=== PATIENT | male | born 2000 | race Caucasian/White ===

== ENCOUNTER 2024-06-22 01:49 | Emergency (ER) | payer BC, MEDICAID, SELFPAY ==
[~2024-06-22] VITALS: Ht 185.4 cm; Wt 61.5 kg
[2024-06-22] MEDS: ONDANSETRON 4MG 2ML VIAL IV ONE (03:06)
[2024-06-22] MEDS: KETOROLAC 30 MG/ML 1ML VIAL IV ONE (03:06)
[2024-06-22] MEDS: NS (Normal Saline) 0.9% 1,000 ML IV ONE (03:06)
[2024-06-22 03:14] LABS: BASO % 0.7 % (0.0-1.0); EOS % 0.7 % (0.0-3.0); HEMATOCRIT 40.1 % (42.0-52.0); HEMOGLOBIN 13.8 g/dl (13.5-17.5); LYMPH # 1.2 10^3/uL (1.5-5.0); LYMPH % 27.8 % (24.0-44.0); MEAN CORPUSCULAR HEMOGLOBIN 30.4 pg (27.0-33.0); MEAN CORPUSCULAR HGB CONC 34.4 g/dl (32.0-36.5); MEAN CORPUSCULAR VOLUME 88.3 fl (80.0-96.0); MONO # 0.3 10^3/uL (0.0-0.8); MONO % 6.7 % (2.0-8.0); NEUTROPHILS # 2.8 10^3/uL (1.5-8.5); NEUTROPHILS % 63.9 % (36.0-66.0); PLATELET COUNT, AUTOMATED 272 10^3/uL (150-450); RED BLOOD COUNT 4.54 10^6/uL (4.30-6.10); WHITE BLOOD COUNT 4.4 10^3/uL (4.0-10.0)
[2024-06-22 03:29] LABS: KETONE, URINE AUTO RFX NEGATIVE (NEGATIVE); LEUKOCYTE ESTERASE UR AUTO RFX NEGATIVE (NEGATIVE); NITRITE, URINE AUTO RFX NEGATIVE (NEGATIVE); RBC, URINE AUTO RFX 0 /HPF (0-3); SQUAM EPITHELIAL CELL UR AURFX 0 /HPF (0-6); WBC, URINE AUTO RFX 0 /HPF (0-3)
[2024-06-22 03:33] LABS: LIPASE 36 U/L (12-53)
[2024-06-22 03:35] LABS: ALBUMIN 4.5 G/DL (3.2-5.2); ALKALINE PHOSPHATASE 51 U/L (40-129); ALT/SGPT 23 U/L (7.0-40); AMYLASE 108 U/L (30-118); AST/SGOT 14 U/L (<34); BILIRUBIN,TOTAL 0.7 MG/DL (0.3-1.2); BLOOD UREA NITROGEN 6 MG/DL (9-23); CALCIUM LEVEL 9.7 MG/DL (8.5-10.1); CARBON DIOXIDE LEVEL 28 MMOL/L (20-31); CHLORIDE LEVEL 106 MMOL/L (98-107); CREATININE FOR GFR 0.75 MG/DL (0.70-1.30); GLOMERULAR FILTRATION RATE > 60.0 (>60); GLUCOSE, FASTING 100 MG/DL (60-100); POTASSIUM SERUM 3.4 MMOL/L (3.5-5.1); SODIUM LEVEL 143 MMOL/L (136-145); TOTAL PROTEIN 6.9 G/DL (5.7-8.2)
[2024-06-22 04:00] LABS: AMPHETAMINES LEVEL URINE NEGATIVE (NEGATIVE); BARBITURATES URINE NEGATIVE (NEGATIVE); BENZODIAZEPINES URINE NEGATIVE (NEGATIVE); COCAINE METABOLITE URINE NEGATIVE (NEGATIVE); METHADONE URINE NEGATIVE (NEGATIVE); OPIATES URINE NEGATIVE (NEGATIVE); PHENCYCLIDINE URINE NEGATIVE (NEGATIVE)
[2024-06-22 04:27] LABS: CANNABINOIDS URINE POSITIVE (NEGATIVE)
[2024-06-22] MEDS: diphenhydrAMINE 50MG/ML VIAL IV STA (05:46)
[2024-06-22] MEDS: methylPREDNISolone 125MG 2ML VIAL IV ONE (05:46)
[2024-06-22] MEDS: FAMOTIDINE 20MG/2ML VIAL IVP ONE (05:46)
[2024-06-22] MEDS ORDERED: ISOVUE-370 76% 100ML VIAL As Ordered ONE (05:47)
[2024-06-22] MEDS: POTASSIUM CHLORIDE 10MEQ SR TABLET PO ONE (09:53)
[2024-06-22 09:55] VITALS: BP 117/58; TEMP 97.3; O2SAT 97
== END 2024-06-22 09:55 | disposition home or self-care (01) ==
LOC: EDBD 01:49 → M ED 01:49
DX: R10.9 Unspecified abdominal pain (principal); F90.9 Attention-deficit hyperactivity disorder, unspecified type; F32.A Depression, unspecified; F17.210 Nicotine dependence, cigarettes, uncomplicated; F19.10 Other psychoactive substance abuse, uncomplicated; Z91.013 Allergy to seafood; Z91.018 Allergy to other foods
CPT/HCPCS: 74177; 80053; 80307; 81001; 82150; 83690; 85025; 96361; 96374; 96375; 99285; J1200; J1308; J1885; J2405; J2919; Q9967